=== PATIENT | male | born 1985 ===

== ENCOUNTER 2020-02-01 20:29 | Outpatient (CLI) | payer MEDICAID | END 2020-02-01 20:30 | disposition critical access hospital (66) | LOC: EMS 20:29 | PROVIDERS: ATTEND Surgery | DX: R41.82 Altered mental status, unspecified (principal); R45.5 Hostility | CPT/HCPCS: A0425; A0429; A0999 ==

== ENCOUNTER 2020-02-01 20:43 | Inpatient (IN) | payer MEDICAID ==
[2020-02-01] MEDS ORDERED: KETAMINE 500 MG/10 ML VIAL IM STA (20:47)
[2020-02-01] MEDS ORDERED: KETAMINE 500 MG/10 ML VIAL IVP STA (20:50)
[2020-02-01] MEDS ORDERED: KETAMINE 500 MG/10 ML VIAL ONE (20:53)
[2020-02-01] MEDS ORDERED: SUCCINYLCHOLINE 200 MG/10 ML VIAL ONE (21:03)
[2020-02-01] MEDS ORDERED: PROPOFOL 200 MG/20 ML VIAL IVP ONE (21:03)
[2020-02-01 21:06] LABS: BASOPHILS # (AUTO) 0.1 10^3/uL (0.0-0.1); BASOPHILS % (AUTO) 0.4 %; EOSINOPHILS # (AUTO) 0.2 10^3/uL (0.0-0.7); EOSINOPHILS % (AUTO) 1.4 %; HGB - HEMOGLOBIN 12.5 g/dL (14.0-18.0); LYMPHOCYTES # (AUTO) 3.9 10^3/uL (1.5-3.5); LYMPHOCYTES % (AUTO) 31.5 %; MEAN CORPUSCULAR HGB CONC 33.8 g/dL (32.0-36.0); MEAN CORPUSCULAR VOLUME 88.7 fL (80.0-94.0); MEAN PLATELET VOLUME 9.7 fL (7.4-11.4); MONOCYTES # (AUTO) 1.5 10^3/uL (0.0-1.0); MONOCYTES % (AUTO) 11.6 %; NEUTROPHILS # (AUTO) 6.9 10^3/uL (1.5-6.6); NEUTROPHILS % (AUTO) 54.7 %; PLT - PLATELET COUNT 237 10^3/uL (130-450); RED BLOOD COUNT 4.17 10^6/uL (4.70-6.10); RED CELL DISTRIBUTION WIDTH 12.8 % (12.0-15.0); WHITE BLOOD COUNT 12.5 x10^3/uL (4.8-10.8)
[2020-02-01] MEDS ORDERED: PROPOFOL 200 MG/20 ML VIAL IVP STA (21:09)
[2020-02-01] MEDS ORDERED: SUCCINYLCHOLINE 200 MG/10 ML VIAL IVP STA (21:09)
[2020-02-01] MEDS: PROPOFOL 500 MG/50 ML 500 MG/50 ML VIAL IV STA ×2 (21:10→22:44)
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
[2020-02-01 21:22] LABS: ACETAMINOPHEN < 10 ug/mL (10-30); ALBUMIN 4.2 g/dL (3.2-5.5); ALBUMIN/GLOBULIN RATIO 1.6 (1.0-2.2); ALKALINE PHOSPHATASE 57 IU/L (42-121); ALT ALANINE AMINOTRANSFERASE 34 IU/L (10-60); AST ASPARTATE AMINOTRANSFERASE 31 IU/L (10-42); BILIRUBIN,TOTAL 0.4 mg/dL (0.2-1.0); BUN - BLOOD UREA NITROGEN 19 mg/dL (6-20); CALCIUM 8.7 mg/dL (8.5-10.3); CARBON DIOXIDE - CO2 21 mmol/L (21-32); CHLORIDE 110 mmol/L (101-111); CREATININE 0.7 mg/dL (0.6-1.2); GLUCOSE 133 mg/dL (70-100); LIPASE 46 U/L (22-51); SALICYLATE < 6.0 mg/dL; SODIUM 145 mmol/L (135-145); TOTAL PROTEIN 6.8 g/dL (6.7-8.2)
[2020-02-01] MEDS ORDERED: THIAMINE INJ 100 MG in SODIUM CHLORIDE 0.9% 50 ML IV STA (21:45)
[2020-02-01] MEDS ORDERED: POTASSIUM CHLOR 10 MEQ/100 ML 10 MEQ/100 ML BAG IV ONE (21:45)
[2020-02-01] MEDS ORDERED: ONDANSETRON 4 MG/2 ML VIAL IVP PRN (21:48)
[2020-02-01] MEDS ORDERED: DEXTROSE 5%-0.45% NACL 1,000 ML IV STA (21:54)
--- NOTE | 2020-02-01 21:55 | CT Report ---
PROCEDURE: HEAD WO INDICATIONS: Acute altered mental status. TECHNIQUE: Noncontrast 4.5 mm thick angled axial sections acquired from the foramen magnum to the vertex. For r adiation dose reduction, the following was used: automated exposure control, adjustment of mA and/or kV according to patient size. COMPARISON: None. FINDINGS: Image quality: Excellent. CSF spaces: Basal cisterns are patent. No extra-axial fluid collections. Ventricles are normal in size and shape. Brain: No midline shift. No intracranial masses or hemorrhage. Rutledge-white matter interface is norm al. Skull and face: Calvarium and visualized facial bones are intact, without suspicious lesions. Sinuses: Visualized sinuses and mastoids are clear. IMPRESSION: No acute intracranial disease process. Reviewed by: Brenda Chirinos MD, PhD on 02/01/2020 9:54 PM PDT Approved by: Brenda Chirinos MD, PhD on 02/01/2020 9:54 PM PDT Station ID: [id number]
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
--- NOTE | 2020-02-01 21:57 | XRAY Report ---
PROCEDURE: Chest for Line Placement INDICATIONS: INTUBATION TECHNIQUE: One view of the chest was acquired. COMPARISON: None FINDINGS: Surgical changes and devices: ET tube projects 4.9 cm superior to the ronni. NG tube projects across the GE junction with side port in the proximal stomach. Lungs and pleura: No pleural effusions or pneumothorax. Lungs are clear. Mediastinum: Mediastinal contours appear normal. Heart size is normal. Bones and chest wall: No suspicious bony lesions. Overlying soft tissues appear unremarkable. IMPRESSION: 1. ET tube 4.9 cm superior to the ronni. 2. No acute cardiopulmonary disease process. Reviewed by: Brenda Chirinos MD, PhD on 02/01/2020 9:56 PM PDT Approved by: Brenda Chirinos MD, PhD on 02/01/2020 9:56 PM PDT Station ID: [id number]
[2020-02-01 21:58] LABS: MUDS CUTOFF CONCENTRATIONS CUTOFF CONC BELOW:
[2020-02-01 22:00] LABS: BILIRUBIN,URINE NEGATIVE (NEGATIVE); GLUCOSE, URINE (UA) NEGATIVE (NEGATIVE); KETONES,URINE (UA) NEGATIVE (NEGATIVE); LEUKOCYTE ESTERASE, URINE NEGATIVE (NEGATIVE); NITRITE,URINE NEGATIVE (NEGATIVE); OCCULT BLOOD,URINE NEGATIVE (NEGATIVE); PROTEIN,URINE NEGATIVE (NEGATIVE); UROBILINOGEN,URINE 0.2 (NORMAL) E.U./dL (NORMAL)
[2020-02-01] MEDS ORDERED: LACTATED RINGERS 1,000 ML IV SCH (22:00)
[2020-02-01] MEDS ORDERED: PROPOFOL 500 MG/50 ML 500 MG/50 ML VIAL IV SCH (22:00)
[2020-02-01 22:01] LABS: CLARITY,URINE CLEAR (CLEAR)
[2020-02-01 22:11] LABS: AMPHETAMINE SCREEN,URINE POSITIVE (NEGATIVE); BENZODIAZEPINES SCREEN, URINE NEGATIVE (NEGATIVE); COCAINE SCREEN URINE NEGATIVE (NEGATIVE); METHADONE SCREEN, URINE NEGATIVE (NEGATIVE); METHAMPHETAMINES SCREEN, URINE NEGATIVE (NEGATIVE); OPIATE SCREEN, URINE NEGATIVE (NEGATIVE); OXYCODONE SCREEN, URINE NEGATIVE (NEGATIVE); PROPOXYPHENE SCREEN, URINE NEGATIVE (NEGATIVE); TRICYCLIC ANTIDEPRESSANT,URINE NEGATIVE (NEGATIVE)
[2020-02-01 22:58] LABS: ABG BASE EXCESS -7.5 mmol/L (-2.0-3.0); ABG HCO3 18.8 mmol/L (22.0-26.0); ABG OXYGEN SATURATION 99 % (94-98); ABG PCO2 41 mmHg (34-45); ABG PH 7.28 (7.35-7.45); ALLEN TEST POSITIVE
[2020-02-01 23:00] LABS: ABG PO2 252 mmHg (80-100)
[2020-02-01] MEDS: POTASSIUM CHLOR 10 MEQ/100 ML 10 MEQ/100 ML BAG IV SCH (23:48)
[2020-02-01] MEDS: SODIUM CHLORIDE FLUSH 0.9% 10 ML SYRINGE IVP SCH (23:49)
[2020-02-02] MEDS: MIDAZOLAM 2 MG/2 ML VIAL IVP PRN ×4 (00:38→07:58)
[2020-02-02] MEDS: POTASSIUM CHLOR 10 MEQ/100 ML 10 MEQ/100 ML BAG IV SCH ×6 (00:50→10:10)
[2020-02-02] MEDS: PROPOFOL 500 MG/50 ML 500 MG/50 ML VIAL IV SCH ×9 (01:05→18:30)
[2020-02-02] MEDS: SODIUM CHLORIDE FLUSH 0.9% 10 ML SYRINGE IVP PRN ×2 (03:39→20:57)
[2020-02-02 04:48] LABS: ABG HCO3 26.1 mmol/L (22.0-26.0); ABG PCO2 42 mmHg (34-45); ABG PO2 138 mmHg (80-100)
[2020-02-02 04:49] LABS: ABG OXYGEN SATURATION 99 % (94-98); ALLEN TEST POSITIVE
[2020-02-02 05:54] LABS: BASOPHILS % (AUTO) 0.3 %; EOSINOPHILS # (AUTO) 0.1 10^3/uL (0.0-0.7); EOSINOPHILS % (AUTO) 0.9 %; HGB - HEMOGLOBIN 11.3 g/dL (14.0-18.0); LYMPHOCYTES # (AUTO) 2.4 10^3/uL (1.5-3.5); MEAN CORPUSCULAR HEMOGLOBIN 29.3 pg (27.0-31.0); MEAN CORPUSCULAR HGB CONC 32.8 g/dL (32.0-36.0); MEAN CORPUSCULAR VOLUME 89.1 fL (80.0-94.0); MONOCYTES # (AUTO) 0.6 10^3/uL (0.0-1.0); NEUTROPHILS # (AUTO) 3.9 10^3/uL (1.5-6.6); NEUTROPHILS % (AUTO) 55.4 %; PLT - PLATELET COUNT 192 10^3/uL (130-450); RED BLOOD COUNT 3.86 10^6/uL (4.70-6.10); RED CELL DISTRIBUTION WIDTH 13.1 % (12.0-15.0)
[2020-02-02 06:10] LABS: CREATININE 0.6 mg/dL (0.6-1.2); MAGNESIUM 2.3 mg/dL (1.7-2.8)
[2020-02-02 08:33] LABS: VBG PH 7.37 (7.31-7.41)
[2020-02-02] MEDS ORDERED: MULTIVITAMIN 10 ML, THIAMINE INJ 100 MG, FOLIC ACID INJ 1 MG in D5.45NS W/20 MEQ KCL 1,... IV SCH (09:00)
[2020-02-02] MEDS ORDERED: MULTIVITAMIN 10 ML, THIAMINE INJ 100 MG, FOLIC ACID INJ 1 MG, POTASSIUM CHLORIDE INJ 20... IV SCH ×5 (09:00)
[2020-02-02] MEDS: SODIUM CHLORIDE FLUSH 0.9% 10 ML SYRINGE IVP SCH ×3 (09:11→20:45)
[2020-02-02] MEDS: ENOXAPARIN 40 MG/0.4 ML SYRINGE SUBQ SCH (09:12)
--- NOTE | 2020-02-02 09:26 | PHARMACY PROGRESS NOTE ---
- Best Possible Medication History Admit Date and Time: 02/01/20 2148 Processed by: Nursing Medication History completed: In progress Patient Interview: Pt unable to participate As the person ultimately responsible for medication therapy, providers are able to order a medication from an existing home medication list in [facility] via the "Reconcile Routine" prior to Confirmation of that medication by child support officer. Such practice is discouraged except when the physician, in their clinical judgment, deems that a medical need exists for a medication without regard to previous use.
--- NOTE | 2020-02-02 11:56 | PROVIDER PROGRESS NOTE ---
Assessment/Plan - Problem List (1) Respiratory failure requiring intubation Assessment/Plan: He was intubated in the emergency department after he was sedated due to his violent behavior. Intubation was for airway protection alone. He was sedated with Propofil drip and iv Versed pushes. He was extubated this morning. (2) Violent behavior Assessment/Plan: He was brought in by police for violent behavior in the [facility] parking lot. Unclear if this was secondary to the alcohol intoxication or a combination of alcohol plus illicit drug use as well. CT of the head was unremarkable. TSH is within normal limits. No ammonia level was done, but LFTs were normal. Serum had an alcohol level of >200. Urine toxicology showed (+) Amphetamine, (-) Metamphetamine and (+) Cannibis.. He does not remember what happened yesterday, when asked if he remembers the police, etc. after extubation today. He will need a mental health evaluation once he is medically cleared. Will slowly wean down the Propofol drip. (3) Alcohol use Assessment/Plan: Unknown if this was a single episode of alcohol intake versus binging versus chronic alcohol abuse. His serum alcohol level was greater than 200 at admission. Will order daily Thiamine po and advance diet. We will order CIWA protocol with Ativan as needed, watching for alcohol withdrawal symptoms, which is likely later today and tomorrow. (4) Amphetamine user Assessment/Plan: Unknown if this was a single episode of amphetamine intake versus binging versus chronic amphetamine abuse. The tachycardia is improving. Watch for amphetamine withdrawal, which would be hypersomnolence. (5) Hypokalemia Assessment/Plan: Replace with ICU protocol. Follow BMP daily. - Current Meds Current Meds: Current Medications Generic Name Dose Route Start Last Admin Trade Name Freq PRN Reason Stop Dose Admin Enoxaparin Sodium 40 mg 02/02/20 09:00 02/02/20 09:12 Lovenox SUBQ 40 mg DAILY NILO Administration Propofol 500 mg in 50 mls @ 4.082 mls/hr 02/01/20 23:52 02/02/20 11:05 Diprivan IV 50 mcg/kg/min .[id number] NILO 20.412 mls/hr Titration Protocol 10 MCG/KG/MIN Multivitamins 10 ml/ Thiamine 1,021.2 mls @ 100 mls/hr 02/02/20 09:00 02/02/20 11:00 HCl 100 mg/ Folic Acid 1 mg/ IV 100 mls/hr Potassium Chloride 20 meq/ DAILY NILO Infusion Dextrose/Sodium Chloride Midazolam HCl 4 mg 02/01/20 21:52 02/02/20 07:58 Versed IVP 4 mg Q2HR PRN Administration Agitation Sodium Chloride 10 ml 02/02/20 01:00 02/02/20 09:11 Normal Saline Flush 0.9% IVP 10 ml 0100,0900,1700 NILO Administration Sodium Chloride 10 ml 02/01/20 21:48 02/02/20 03:39 Normal Saline Flush 0.9% IVP 10 ml PRN PRN Administration NEEDED PER PROVIDER ORDERS - Lab Result Fish Bone Diagrams: 02/02/20 13:16 02/02/20 13:16 - Additional Planning My Orders: My Active Orders 02/02/20 11:15 Extubation [Extubate] [RC] ONCE Clear Liquid Diet [DIET] 02/02/20 11:25 O2 [Oxygen Therapy] [RC] .PRN 02/02/20 11:36 NG Discontinuation [RC] ONCE 02/02/20 Dinner DIET [Regular Diet] [DIET] Subjective - Subjective Patient Reports: Other (Currently asleep, sedated on iv Propofol) Nursing Reports: Other (After extubation, he was confused, oriented only to self, trying to pull out his IV, he needed propofol to be continued) Objective Vital Signs: Vital Signs - 24 hr 02/01/20 02/01/20 02/01/20 20:35 21:00 21:22 Temperature 37.1 C Heart Rate 135 H 121 H Heart Rate [ Monitoring electrodes] Respiratory 12 19 Rate Blood Pressure 158/92 H 146/95 H Blood Pressure [Right Brachial artery] O2 Saturation 68 L 100 02/01/20 02/01/20 02/01/20 21:32 21:38 21:44 Temperature Heart Rate 115 H 117 H 116 H Heart Rate [ Monitoring electrodes] Respiratory 18 19 Rate Blood Pressure 121/82 H 123/84 H 115/68 Blood Pressure [Right Brachial artery] O2 Saturation 100 95 93 02/01/20 02/01/20 02/01/20 22:04 22:26 22:30 Temperature Heart Rate 101 H Heart Rate [ 100 108 H Monitoring electrodes] Respiratory 14 Rate Blood Pressure 107/62 Blood Pressure 124/92 H 121/87 H [Right Brachial artery] O2 Saturation 100 100 02/01/20 02/01/20 02/01/20 23:00 23:26 23:32 Temperature Heart Rate 95 96 Heart Rate [ 101 H Monitoring electrodes] Respiratory 18 Rate Blood Pressure Blood Pressure 109/72 [Right Brachial artery] O2 Saturation 100 02/02/20 02/02/20 02/02/20 00:04 01:04 01:11 Temperature 37.3 C Heart Rate 103 H Heart Rate [ 94 95 Monitoring electrodes] Respiratory 18 20 Rate Blood Pressure Blood Pressure 127/100 H 111/82 H [Right Brachial artery] O2 Saturation 100 100 02/02/20 02/02/20 02/02/20 02:00 03:00 03:44 Temperature Heart Rate 98 Heart Rate [ 96 99 Monitoring electrodes] Respiratory 21 10 L Rate Blood Pressure Blood Pressure 116/88 H 112/81 H [Right Brachial artery] O2 Saturation 100 99 02/02/20 02/02/20 02/02/20 04:00 05:00 06:00 Temperature Heart Rate Heart Rate [ 106 H 107 H 104 H Monitoring electrodes] Respiratory 18 18 18 Rate Blood Pressure Blood Pressure 100/58 L 114/65 112/70 [Right Brachial artery] O2 Saturation 99 98 98 02/02/20 02/02/20 02/02/20 06:02 07:00 07:15 Temperature Heart Rate 105 H 108 H Heart Rate [ 102 H Monitoring electrodes] Respiratory 18 Rate Blood Pressure Blood Pressure 115/81 H [Right Brachial artery] O2 Saturation 98 02/02/20 02/02/20 02/02/20 08:00 09:00 09:13 Temperature 38.0 C H Heart Rate 112 H Heart Rate [ 109 H 113 H Monitoring electrodes] Respiratory 21 18 Rate Blood Pressure Blood Pressure 113/93 H 128/96 H [Right Brachial artery] O2 Saturation 98 98 02/02/20 02/02/20 02/02/20 10:00 10:26 11:00 Temperature 36.6 C Heart Rate 110 H Heart Rate [ 106 H 98 Monitoring electrodes] Respiratory 16 15 Rate Blood Pressure Blood Pressure 125/91 H 141/96 H [Right Brachial artery] O2 Saturation 98 100 20 11:21 Temperature Heart Rate 110 H Heart Rate [ Monitoring electrodes] Respiratory Rate Blood Pressure Blood Pressure [Right Brachial artery] O2 Saturation Oxygen O2 Source FM with humidity I&O (Last 24 Hrs): Intake and Output Totals x24h 01/31/20 02/01/20 02/02/20 23:59 23:59 23:59 Intake Total 36.299 1732.770 Output Total 500 1450 Balance -463.701 282.770 General: Other (Asleep, sedated) HEENT: Atraumatic, Mucous membr. moist/pink Neck: No JVD Neuro: Other (sedated) Cardiovascular: Regular rate Respiratory: No respiratory distress Abdomen: Soft Extremities: No edema - Results Results: Laboratory Results WBC 7.0 x10^3/uL (4.8-10.8) 02/02/20 04:50 RBC 3.86 10^6/uL (4.70-6.10) L 02/02/20 04:50 Hgb 11.3 g/dL (14.0-18.0) L 02/02/20 04:50 Hct 34.4 % (42.0-52.0) L 02/02/20 04:50 MCV 89.1 fL (80.0-94.0) 02/02/20 04:50 MCH 29.3 pg (27.0-31.0) 02/02/20 04:50 MCHC 32.8 g/dL (32.0-36.0) 02/02/20 04:50 RDW 13.1 % (12.0-15.0) 02/02/20 04:50 Plt Count 192 10^3/uL (130-450) 02/02/20 04:50 MPV 10.0 fL (7.4-11.4) 02/02/20 04:50 Neut # (Auto) 3.9 10^3/uL (1.5-6.6) 02/02/20 04:50 Lymph # (Auto) 2.4 10^3/uL (1.5-3.5) 02/02/20 04:50 [place] # (Auto) 0.6 10^3/uL (0.0-1.0) 02/02/20 04:50 Eos # (Auto) 0.1 10^3/uL (0.0-0.7) 02/02/20 04:50 Baso # (Auto) 0.0 10^3/uL (0.0-0.1) 02/02/20 04:50 Absolute Nucleated RBC 0.00 x10^3/uL 02/02/20 04:50 Nucleated RBC % 0.0 /100WBC 02/02/20 04:50 Bld Gas Analysis Time 0440 02/02/20 04:30 Sample Site LEFT RADIAL 02/02/20 04:30 ABG pH 7.40 (7.35-7.45) 02/02/20 04:30 ABG pCO2 42 mmHg (34-45) 02/02/20 04:30 ABG pO2 138 mmHg (80-100) H 02/02/20 04:30 ABG HCO3 26.1 mmol/L (22.0-26.0) H 02/02/20 04:30 ABG Total CO2 27.0 MMOL/L (21.0-29.0) 02/02/20 04:30 ABG O2 Saturation 99 % (94-98) H 02/02/20 04:30 ABG Base Excess 1.0 mmol/L (-2.0-3.0) 02/02/20 04:30 Shivam Test POSITIVE 02/02/20 04:30 VBG pH 7.370 (7.31-7.41) 02/02/20 07:29 Ionized Calcium 1.11 mmol/L (1.15-1.33) L 02/02/20 07:29 Respiration Rate 18 b/min 02/02/20 04:30 O2 Delivery Device VENTILATOR 02/02/20 04:30 Vent Mode SIMV 02/02/20 04:30 FiO2 32.00 02/02/20 04:30 Tidal Volume 450 mL 02/02/20 04:30 PEEP 5 cmH2O 02/02/20 04:30 Sodium 143 mmol/L (135-145) 02/02/20 04:50 Potassium 3.1 mmol/L (3.5-5.0) L 02/02/20 04:50 Chloride 112 mmol/L (101-111) H 02/02/20 04:50 Carbon Dioxide 23 mmol/L (21-32) 02/02/20 04:50 Anion Gap 8.0 (6-13) 02/02/20 04:50 BUN 13 mg/dL (6-20) 02/02/20 04:50 Creatinine 0.6 mg/dL (0.6-1.2) 02/02/20 04:50 Estimated GFR (MDRD) 153 (>89) 02/02/20 04:50 Glucose 133 mg/dL (70-100) H 02/02/20 04:50 POC Whole Bld Glucose 104 mg/dL (70 - 100) H 02/02/20 05:54 Calcium 8.0 mg/dL (8.5-10.3) L 02/02/20 04:50 Phosphorus 3.0 mg/dL (2.5-4.6) 02/02/20 04:50 Magnesium 2.3 mg/dL (1.7-2.8) 02/02/20 04:50 Total Bilirubin 0.4 mg/dL (0.2-1.0) 02/01/20 20:59 AST 31 IU/L (10-42) 02/01/20 20:59 ALT 34 IU/L (10-60) 02/01/20 20:59 Alkaline Phosphatase 57 IU/L (42-121) 02/01/20 20:59 Total Creatine Kinase < 22 IU/L (22-269) L 02/01/20 20:59 CK-MB (CK-2) 8.8 ng/mL (0.6-6.3) H 02/01/20 20:59 Total Protein 6.8 g/dL (6.7-8.2) 02/01/20 20:59 Albumin 3.4 g/dL (3.2-5.5) 02/02/20 04:50 Globulin 2.6 g/dL (2.1-4.2) 02/01/20 20:59 Albumin/Globulin Ratio 1.6 (1.0-2.2) 02/01/20 20:59 Lipase 46 U/L (22-51) 02/01/20 20:59 TSH 1.11 uIU/mL (0.34-5.60) 02/01/20 20:59 Urine Color YELLOW 02/01/20 21:50 Urine Clarity CLEAR (CLEAR) 02/01/20 21:50 Urine pH 7.0 PH (5.0-7.5) 02/01/20 21:50 Ur Specific [place] 1.020 (1.002-1.030) 02/01/20 21:50 Urine Protein NEGATIVE mg/dL (NEGATIVE) 02/01/20 21:50 Urine Glucose (UA) NEGATIVE mg/dL (NEGATIVE) 02/01/20 21:50 Urine Ketones NEGATIVE mg/dL (NEGATIVE) 02/01/20 21:50 Urine Occult Blood NEGATIVE (NEGATIVE) 02/01/20 21:50 Urine Nitrite NEGATIVE (NEGATIVE) 02/01/20 21:50 Urine Bilirubin NEGATIVE (NEGATIVE) 02/01/20 21:50 Urine Urobilinogen 0.2 (NORMAL) E.U./dL (NORMAL) 02/01/20 21:50 Ur Leukocyte Esterase NEGATIVE (NEGATIVE) 02/01/20 21:50 Ur Microscopic Review NOT INDICATED 02/01/20 21:50 Urine Culture Comments NOT INDICATED 02/01/20 21:50 Nasal Screen MRSA (PCR) NEGATIVE (NEGATIVE) 02/01/20 22:50 Salicylates < 6.0 mg/dL 02/01/20 20:59 Urine Opiates Screen NEGATIVE (NEGATIVE) 02/01/20 21:50 Ur Oxycodone Screen NEGATIVE (NEGATIVE) 02/01/20 21:50 Urine Methadone Screen NEGATIVE (NEGATIVE) 02/01/20 21:50 Ur Propoxyphene Screen NEGATIVE (NEGATIVE) 02/01/20 21:50 Acetaminophen < 10 ug/mL (10-30) L 02/01/20 20:59 Ur Barbiturates Screen NEGATIVE (NEGATIVE) 02/01/20 21:50 Ur Tricyclics Screen NEGATIVE (NEGATIVE) 02/01/20 21:50 Ur Phencyclidine Scrn NEGATIVE (NEGATIVE) 02/01/20 21:50 Ur Amphetamine Screen POSITIVE (NEGATIVE) H 02/01/20 21:50 U Methamphetamines Scrn NEGATIVE (NEGATIVE) 02/01/20 21:50 U Benzodiazepines Scrn NEGATIVE (NEGATIVE) 02/01/20 21:50 Urine Cocaine Screen NEGATIVE (NEGATIVE) 02/01/20 21:50 U Cannabinoids Screen POSITIVE (NEGATIVE) H 02/01/20 21:50 Ethyl Alcohol 294.4 mg/dL 02/01/20 20:59
[2020-02-02] MEDS ORDERED: LORazepam 2 MG/ML VIAL IVP PRN (12:08)
[2020-02-02 13:43] LABS: ALBUMIN 3.6 g/dL (3.2-5.5); ALBUMIN/GLOBULIN RATIO 1.4 (1.0-2.2); BILIRUBIN,TOTAL 0.5 mg/dL (0.2-1.0); CALCIUM 8.4 mg/dL (8.5-10.3); CREATININE 0.6 mg/dL (0.6-1.2); TOTAL PROTEIN 6.1 g/dL (6.7-8.2)
[2020-02-02 13:46] LABS: BASOPHILS % (AUTO) 0.3 %; EOSINOPHILS # (AUTO) 0.1 10^3/uL (0.0-0.7); EOSINOPHILS % (AUTO) 0.6 %; LYMPHOCYTES # (AUTO) 2.2 10^3/uL (1.5-3.5); LYMPHOCYTES % (AUTO) 19.5 %; MEAN CORPUSCULAR HEMOGLOBIN 29.1 pg (27.0-31.0); MEAN CORPUSCULAR HGB CONC 32.8 g/dL (32.0-36.0); MEAN CORPUSCULAR VOLUME 88.6 fL (80.0-94.0); MEAN PLATELET VOLUME 9.8 fL (7.4-11.4); MONOCYTES # (AUTO) 1.1 10^3/uL (0.0-1.0); MONOCYTES % (AUTO) 9.4 %; NEUTROPHILS # (AUTO) 7.8 10^3/uL (1.5-6.6); NEUTROPHILS % (AUTO) 69.8 %; PLT - PLATELET COUNT 211 10^3/uL (130-450); RED BLOOD COUNT 4.13 10^6/uL (4.70-6.10); RED CELL DISTRIBUTION WIDTH 13.2 % (12.0-15.0); WHITE BLOOD COUNT 11.2 x10^3/uL (4.8-10.8)
[2020-02-02] MEDS: THIAMINE 100 MG TABLET PO SCH (18:15)
[2020-02-02] MEDS ORDERED: diphenhydrAMINE 25 MG CAPSULE PO PRN (20:18)
[2020-02-02] MEDS: ACETAMINOPHEN 325 MG TABLET PO PRN (20:45)
[2020-02-02] MEDS: DEXMEDETOMIDINE 400 MCG/100 ML 100 ML IV PRN (20:57)
[2020-02-03 04:49] LABS: BASOPHILS % (AUTO) 0.5 %; EOSINOPHILS # (AUTO) 0.1 10^3/uL (0.0-0.7); EOSINOPHILS % (AUTO) 1.7 %; HGB - HEMOGLOBIN 11.6 g/dL (14.0-18.0); LYMPHOCYTES # (AUTO) 2.5 10^3/uL (1.5-3.5); LYMPHOCYTES % (AUTO) 30.4 %; MEAN CORPUSCULAR HEMOGLOBIN 28.4 pg (27.0-31.0); MEAN CORPUSCULAR HGB CONC 30.9 g/dL (32.0-36.0); MEAN CORPUSCULAR VOLUME 92.2 fL (80.0-94.0); MEAN PLATELET VOLUME 10.2 fL (7.4-11.4); MONOCYTES # (AUTO) 0.7 10^3/uL (0.0-1.0); NEUTROPHILS # (AUTO) 4.7 10^3/uL (1.5-6.6); NEUTROPHILS % (AUTO) 58.2 %; PLT - PLATELET COUNT 186 10^3/uL (130-450); RED BLOOD COUNT 4.08 10^6/uL (4.70-6.10); WHITE BLOOD COUNT 8.1 x10^3/uL (4.8-10.8)
[2020-02-03 05:02] LABS: CALCIUM 8.7 mg/dL (8.5-10.3); CREATININE 0.7 mg/dL (0.6-1.2); MAGNESIUM 2.4 mg/dL (1.7-2.8); PHOSPHORUS 4.4 mg/dL (2.5-4.6)
[2020-02-03] MEDS: DEXMEDETOMIDINE 400 MCG/100 ML 100 ML IV PRN (07:46)
[2020-02-03] MEDS: ACETAMINOPHEN 325 MG TABLET PO PRN ×3 (08:04→17:42)
[2020-02-03] MEDS: THIAMINE 100 MG TABLET PO SCH (08:10)
[2020-02-03] MEDS ORDERED: DEXMEDETOMIDINE 400 MCG in SODIUM CHLORIDE 0.9% 100ML 96 ML IV SCH (08:30)
[2020-02-03] MEDS: polyethylene glycoL 3350 17 GM PACKET PO SCH (08:34)
[2020-02-03] MEDS: SODIUM CHLORIDE FLUSH 0.9% 10 ML SYRINGE IVP SCH ×2 (08:34→17:44)
[2020-02-03] MEDS: ENOXAPARIN 40 MG/0.4 ML SYRINGE SUBQ SCH (10:17)
--- NOTE | 2020-02-03 12:00 | PROVIDER PROGRESS NOTE ---
Subjective - Prog Note Date Prog Note Date: 02/03/20 - Subjective Subjective: Complains of pain all over this morning. Reports feeling hungry and wants breakfast as soon as possible. He was started on Precedex yesterday overnight due to agitation. Reports no chest pain or dyspnea. He denies using any illicit drugs including methamphetamine, heroin, cocaine. He states he does drink alcohol on occasion but not on a daily basis. He does admit to drinking prior to his hospitalization. Current Medications - Current Medications Current Medications: Active Medications Acetaminophen (Tylenol) 650 mg PO Q6HR PRN PRN Reason: Pain or Fever > 38C (100.4F) Last Admin: 02/03/20 08:04 Dose: 650 mg Documented by: Al Hydroxide/Mg Hydroxide (Mylanta Plus) 30 ml PO Q4HR PRN PRN Reason: INDIGESTION Enoxaparin Sodium (Lovenox) 40 mg SUBQ DAILY [facility] Last Admin: 02/03/20 10:17 Dose: Not Given Documented by: Multivitamins (Theragran) 1 tab PO DAILYWM [facility] Ondansetron HCl (Zofran Inj) 4 mg IVP Q6HR PRN PRN Reason: Nausea / Vomiting Polyethylene Glycol (Miralax) 17 gm PO DAILY [facility] Last Admin: 02/03/20 08:34 Dose: 17 gm Documented by: Sodium Chloride (Normal Saline Flush 0.9%) 10 ml IVP 0100,0900,1700 [facility] Last Admin: 02/03/20 08:34 Dose: 10 ml Documented by: Sodium Chloride (Normal Saline Flush 0.9%) 10 ml IVP PRN PRN PRN Reason: NEEDED PER PROVIDER ORDERS Last Admin: 02/02/20 20:57 Dose: 10 ml Documented by: Thiamine HCl (Vitamin B-1) 100 mg PO DAILY [facility] Last Admin: 02/03/20 08:10 Dose: 100 mg Documented by: Home Medications Unobtainable [HOME MEDICATIONS UNOBTAINABLE] 02/01/20 Objective - Vital Signs/Intake & Output Reviewed Vital Signs: Yes Vital Signs: Vital Signs Temp Pulse Resp BP Pulse Ox 02/03/20 11:47 79 16 123/77 98 02/03/20 11:00 75 16 02/03/20 10:00 73 16 107/68 99 02/03/20 09:00 37.1 C 66 13 95/67 99 02/03/20 08:00 66 14 116/73 99 Intake & Output: Intake & Output 01/31/20 02/01/20 02/02/20 02/03/20 23:59 23:59 23:59 23:59 Intake Total 36.299 3494.302 1011.270 Output Total 500 3535 1140 Balance -463.701 -40.698 -128.730 - Objective General Appearance: positive: No acute distress, Alert Eyes Bilateral: positive: Normal inspection ENT: positive: ENT inspection nml Neck: positive: Nml inspection Respiratory: positive: No respiratory distress. negative: Wheezes, Rales Cardiovascular: positive: Regular rate & rhythm, No murmur. negative: Tachycardia, Bradycardia Abdomen: positive: Non-tender, No distention. negative: Tenderness, Guarding, Rebound Skin: positive: No rash, Warm, Dry Extremities: positive: Full ROM, No pedal edema Neurologic/Psychiatric: positive: Oriented x3, Motor nml. negative: Disoriented to person, Disoriented to place, Disoriented to time - Lab Results Fish Bones: 02/03/20 04:05 02/03/20 04:05 Other Labs: Lab Results x24hrs 02/03/20 02/03/20 02/02/20 Range/Units 04:05 04:05 17:57 WBC 8.1 (4.8-10.8) x10^3/uL RBC 4.08 L (4.70-6.10) 10^6/uL Hgb 11.6 L (14.0-18.0) g/dL Hct 37.6 L (42.0-52.0) % MCV 92.2 (80.0-94.0) fL MCH 28.4 (27.0-31.0) pg MCHC 30.9 L (32.0-36.0) g/dL RDW 13.0 (12.0-15.0) % Plt Count 186 (130-450) 10^3/uL MPV 10.2 (7.4-11.4) fL Neut # (Auto) 4.7 (1.5-6.6) 10^3/uL Lymph # (Auto) 2.5 (1.5-3.5) 10^3/uL [place] # (Auto) 0.7 (0.0-1.0) 10^3/uL Eos # (Auto) 0.1 (0.0-0.7) 10^3/uL Baso # (Auto) 0.0 (0.0-0.1) 10^3/uL Absolute Nucleated RBC 0.00 x10^3/uL Nucleated RBC % 0.0 /100WBC Sodium 141 (135-145) mmol/L Potassium 3.9 (3.5-5.0) mmol/L Chloride 107 (101-111) mmol/L Carbon Dioxide 26 (21-32) mmol/L Anion Gap 8.0 (6-13) BUN 13 (6-20) mg/dL Creatinine 0.7 (0.6-1.2) mg/dL Estimated GFR (MDRD) 128 (>89) Glucose 168 H (70-100) mg/dL POC Whole Bld Glucose 94 (70 - 100) mg/dL Calcium 8.7 (8.5-10.3) mg/dL Phosphorus 4.4 (2.5-4.6) mg/dL Magnesium 2.4 (1.7-2.8) mg/dL Total Bilirubin (0.2-1.0) mg/dL AST (10-42) IU/L ALT (10-60) IU/L Alkaline Phosphatase (42-121) IU/L Total Protein (6.7-8.2) g/dL Albumin (3.2-5.5) g/dL Globulin (2.1-4.2) g/dL Albumin/Globulin Ratio (1.0-2.2) 02/02/20 02/02/20 Range/Units 13:16 13:16 WBC 11.2 H (4.8-10.8) x10^3/uL RBC 4.13 L (4.70-6.10) 10^6/uL Hgb 12.0 L (14.0-18.0) g/dL Hct 36.6 L (42.0-52.0) % MCV 88.6 (80.0-94.0) fL MCH 29.1 (27.0-31.0) pg MCHC 32.8 (32.0-36.0) g/dL RDW 13.2 (12.0-15.0) % Plt Count 211 (130-450) 10^3/uL MPV 9.8 (7.4-11.4) fL Neut # (Auto) 7.8 H (1.5-6.6) 10^3/uL Lymph # (Auto) 2.2 (1.5-3.5) 10^3/uL [place] # (Auto) 1.1 H (0.0-1.0) 10^3/uL Eos # (Auto) 0.1 (0.0-0.7) 10^3/uL Baso # (Auto) 0.0 (0.0-0.1) 10^3/uL Absolute Nucleated RBC 0.00 x10^3/uL Nucleated RBC % 0.0 /100WBC Sodium 140 (135-145) mmol/L Potassium 3.6 (3.5-5.0) mmol/L Chloride 106 (101-111) mmol/L Carbon Dioxide 26 (21-32) mmol/L Anion Gap 8.0 (6-13) BUN 9 (6-20) mg/dL Creatinine 0.6 (0.6-1.2) mg/dL Estimated GFR (MDRD) 153 (>89) Glucose 103 H (70-100) mg/dL POC Whole Bld Glucose (70 - 100) mg/dL Calcium 8.4 L (8.5-10.3) mg/dL Phosphorus (2.5-4.6) mg/dL Magnesium (1.7-2.8) mg/dL Total Bilirubin 0.5 (0.2-1.0) mg/dL AST 22 (10-42) IU/L ALT 28 (10-60) IU/L Alkaline Phosphatase 42 (42-121) IU/L Total Protein 6.1 L (6.7-8.2) g/dL Albumin 3.6 (3.2-5.5) g/dL Globulin 2.5 (2.1-4.2) g/dL Albumin/Globulin Ratio 1.4 (1.0-2.2) - Diagnostic Imaging Diagnostic Imaging Results: positive: Final report reviewed Assessment/Plan - Problem List (1) Violent behavior Impression: Suspect this is secondary to the alcohol intoxication. Urine toxicology was positive for amphetamines but negative for methamphetamines. It was also positive for cannabis. He denies any illicit drug use. He does endorse the use of alcohol and reports drinking prior to the hospitalization. He did require Precedex overnight due to agitation but this has now been weaned off. He is now alert and oriented x3. He does use vulgar language at times and has been using inappropriate language with staff. He is now medically cleared. He will need a mental health evaluation social work has been consulted. He will be transferred to [facility]. (2) Alcohol intoxication Impression: This is likely the cause of his violent behavior. He reports this with a single episode of alcohol consumption and that he is not a daily drinker. His alcohol level was nearly 300 on admission. He has not been changing to oral thiamine and multivitamin. He has shown no evidence of alcohol withdrawal but we will monitor him while he is hospitalized. Qualifiers: Complication of substance-induced condition: with delirium Qualified Code(s): F10.921 - Alcohol use, unspecified with intoxication delirium (3) Amphetamine user Impression: His urine drug screen was positive for amphetamines but negative for methamphetamines. This may potentially be a false positive or could be due to multiple drugs that he may have used. Social work has been consulted for mental health evaluation. (4) Respiratory failure requiring intubation Impression: Resolved. He was intubated for airway protection. He is now extubated and saturating well on room air.
[2020-02-03] MEDS: MAG HYDROX/AL HYDROX/SIMETH 30 ML UDC PO PRN (13:37)
[2020-02-03] MEDS ORDERED: OLANZapine ODT 5 MG TABLET TL SCH (14:00)
[2020-02-03] MEDS: SODIUM CHLORIDE FLUSH 0.9% 10 ML SYRINGE IVP PRN (17:45)
[2020-02-03] MEDS: NICOTINE 21 MG PATCH TOP SCH (19:02)
[2020-02-03] MEDS: IBUPROFEN 400 MG TABLET PO PRN (21:12)
[2020-02-03] MEDS: traZODone 50 MG TABLET PO SCH (21:12)
[2020-02-04] MEDS: IBUPROFEN 400 MG TABLET PO PRN ×3 (04:37→14:45)
[2020-02-04] MEDS: SODIUM CHLORIDE FLUSH 0.9% 10 ML SYRINGE IVP SCH ×3 (04:38→17:05)
[2020-02-04 05:19] LABS: BASOPHILS # (AUTO) 0.1 10^3/uL (0.0-0.1); BASOPHILS % (AUTO) 0.6 %; EOSINOPHILS # (AUTO) 0.3 10^3/uL (0.0-0.7); EOSINOPHILS % (AUTO) 3.5 %; HGB - HEMOGLOBIN 12.8 g/dL (14.0-18.0); MEAN CORPUSCULAR HEMOGLOBIN 29.4 pg (27.0-31.0); MEAN CORPUSCULAR HGB CONC 32.7 g/dL (32.0-36.0); MEAN CORPUSCULAR VOLUME 89.7 fL (80.0-94.0); MONOCYTES # (AUTO) 0.9 10^3/uL (0.0-1.0); MONOCYTES % (AUTO) 10.2 %; NEUTROPHILS # (AUTO) 4.3 10^3/uL (1.5-6.6); NEUTROPHILS % (AUTO) 50.2 %; PLT - PLATELET COUNT 255 10^3/uL (130-450); RED BLOOD COUNT 4.36 10^6/uL (4.70-6.10); RED CELL DISTRIBUTION WIDTH 12.8 % (12.0-15.0); WHITE BLOOD COUNT 8.5 x10^3/uL (4.8-10.8)
[2020-02-04 05:32] LABS: CREATININE 0.9 mg/dL (0.6-1.2); MAGNESIUM 2.3 mg/dL (1.7-2.8)
[2020-02-04] MEDS: MULTIVITAMIN TABLET PO SCH (08:14)
[2020-02-04] MEDS: NICOTINE 21 MG PATCH TOP SCH (08:28)
[2020-02-04] MEDS: polyethylene glycoL 3350 17 GM PACKET PO SCH (08:48)
[2020-02-04] MEDS: ENOXAPARIN 40 MG/0.4 ML SYRINGE SUBQ SCH (08:48)
[2020-02-04] MEDS: THIAMINE 100 MG TABLET PO SCH (09:30)
[2020-02-04] MEDS: ACETAMINOPHEN 325 MG TABLET PO PRN ×3 (10:05→20:31)
[2020-02-04] MEDS: MAG HYDROX/AL HYDROX/SIMETH 30 ML UDC PO PRN (10:06)
[2020-02-04] MEDS: OLANZapine ODT 5 MG TABLET TL SCH (13:10)
[2020-02-04] MEDS ORDERED: LORazepam 2 MG/ML VIAL IVP SCH (14:15)
[2020-02-04] MEDS ORDERED: IBUPROFEN 400 MG TABLET PO SCH (15:00)
[2020-02-04] MEDS ORDERED: IBUPROFEN 800 MG TABLET PO SCH (15:05)
--- NOTE | 2020-02-04 16:01 | PROVIDER PROGRESS NOTE ---
"Subjective - Prog Note Date Prog Note Date: 02/04/20 - Subjective Subjective: He complains of pain all over and is requesting something stronger than ibuprofen or Tylenol. Reports no chest pain or dyspnea he thinks he has cellulitis and is requesting antibiotics. He reports he has had cellulitis in the past. He wants to leave the hospital and at times he request to speak with his director of women's services. He currently denies any auditory hallucinations but he states that he does have them at times and he supposed be on Zyprexa which he has not been taking. Current Medications - Current Medications Current Medications: Active Medications Acetaminophen (Tylenol) 650 mg PO Q6HR PRN PRN Reason: Pain or Fever > 38C (100.4F) Last Admin: 02/04/20 10:05 Dose: 650 mg Documented by: Al Hydroxide/Mg Hydroxide (Mylanta Plus) 30 ml PO Q4HR PRN PRN Reason: INDIGESTION Last Admin: 02/04/20 10:06 Dose: 30 ml Documented by: Enoxaparin Sodium (Lovenox) 40 mg SUBQ DAILY [facility] Last Admin: 02/04/20 08:48 Dose: Not Given Documented by: Ibuprofen (Motrin) 800 mg PO ONCE NILO Stop: 02/04/20 16:00 Last Admin: 02/04/20 15:25 Dose: Not Given Documented by: Multivitamins (Theragran) 1 tab PO DAILYWM [facility] Last Admin: 02/04/20 08:14 Dose: 1 tab Documented by: Nicotine (Nicoderm) 1 patch TOP DAILY [facility] Last Admin: 02/04/20 08:28 Dose: 1 patch Documented by: Olanzapine (Zyprexa Odt) 5 mg TL DAILY [facility] Last Admin: 02/04/20 13:10 Dose: 5 mg Documented by: Ondansetron HCl (Zofran Inj) 4 mg IVP Q6HR PRN PRN Reason: Nausea / Vomiting Polyethylene Glycol (Miralax) 17 gm PO DAILY [facility] Last Admin: 02/04/20 08:48 Dose: Not Given Documented by: Sodium Chloride (Normal Saline Flush 0.9%) 10 ml IVP 0100,0900,1700 [facility] Last Admin: 02/04/20 08:49 Dose: 10 ml Documented by: Sodium Chloride (Normal Saline Flush 0.9%) 10 ml IVP PRN PRN PRN Reason: NEEDED PER PROVIDER ORDERS Last Admin: 02/03/20 17:45 Dose: 20 ml Documented by: Thiamine HCl (Vitamin B-1) 100 mg PO DAILY [facility] Last Admin: 02/04/20 09:30 Dose: 100 mg Documented by: Trazodone HCl (Desyrel) 50 mg PO QPM [facility] Last Admin: 02/03/20 21:12 Dose: 50 mg Documented by: OLANZapine [Zyprexa] 5 mg PO 02/03/20 Objective - Vital Signs/Intake & Output Reviewed Vital Signs: Yes Vital Signs: Vital Signs x48h Temp Pulse Resp BP Pulse Ox 02/04/20 15:42 36.5 C 106 H 20 122/73 97 02/04/20 12:39 97.8 C H 105 H 12 153/88 H 98 02/04/20 08:34 36.4 C L 102 H 12 153/91 H 98 Intake & Output: Intake & Output 02/01/20 02/02/20 02/03/20 02/04/20 23:59 23:59 23:59 23:59 Intake Total 36.299 3494.302 3571.270 2280 Output Total 500 3535 1840 800 Balance -463.701 -40.698 4206.006 9749 - Objective General Appearance: positive: No acute distress, Alert Eyes Bilateral: positive: Normal inspection ENT: positive: ENT inspection nml Neck: positive: Nml inspection Respiratory: positive: No respiratory distress. negative: Wheezes, Rales, Rhonchi Cardiovascular: positive: No murmur, Tachycardia. negative: Extrasystoles, Bradycardia, Systolic murmur, Diastolic murmur Abdomen: positive: Non-tender, No distention. negative: Tenderness, Guarding, Rebound Skin: positive: Color nml, No rash, Warm, Dry Extremities: positive: Full ROM, No pedal edema Neurologic/Psychiatric: positive: Oriented x3, Motor nml, Other (Pressured speech and tangential thoughts.). negative: Disoriented to person, Disoriented to place, Disoriented to time - Lab Results Fish Bones: 02/04/20 04:20 02/04/20 04:20 Other Labs: Lab Results x24hrs 02/04/20 02/04/20 Range/Units 04:20 04:20 WBC 8.5 (4.8-10.8) x10^3/uL RBC 4.36 L (4.70-6.10) 10^6/uL Hgb 12.8 L (14.0-18.0) g/dL Hct 39.1 L (42.0-52.0) % MCV 89.7 (80.0-94.0) fL MCH 29.4 (27.0-31.0) pg MCHC 32.7 (32.0-36.0) g/dL RDW 12.8 (12.0-15.0) % Plt Count 255 (130-450) 10^3/uL MPV 10.0 (7.4-11.4) fL Neut # (Auto) 4.3 (1.5-6.6) 10^3/uL Lymph # (Auto) 3.0 (1.5-3.5) 10^3/uL [place] # (Auto) 0.9 (0.0-1.0) 10^3/uL Eos # (Auto) 0.3 (0.0-0.7) 10^3/uL Baso # (Auto) 0.1 (0.0-0.1) 10^3/uL Absolute Nucleated RBC 0.00 x10^3/uL Nucleated RBC % 0.0 /100WBC Sodium 140 (135-145) mmol/L Potassium 4.2 (3.5-5.0) mmol/L Chloride 103 (101-111) mmol/L Carbon Dioxide 29 (21-32) mmol/L Anion Gap 8.0 (6-13) BUN 24 H (6-20) mg/dL Creatinine 0.9 (0.6-1.2) mg/dL Estimated GFR (MDRD) 96 (>89) Glucose 125 H (70-100) mg/dL Calcium 9.0 (8.5-10.3) mg/dL Phosphorus 5.0 H (2.5-4.6) mg/dL Magnesium 2.3 (1.7-2.8) mg/dL ABX Reporting Has patient been on IV antibiotics over the past 48 hours?: No Assessment/Plan - Problem List (1) Acute psychosis Impression: |His current presentation is consistent with acute psychosis given his history of paranoid schizophrenia. 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 He has paranoid thoughts at this time. He was evaluated by [facility] and he is on involuntary hold. Pending placement to [facility] once we have a negative COVID test. We will continue Zyprexa 5 mg which was resumed today. (2) Paranoid schizophrenia Impression: Likely cause of his acute psychosis. We have resumed his Zyprexa at 5 mg daily. Pending placement to [facility] once negative COVID test. (3) Amphetamine user Impression: Drinking is positive for amphetamines but negative for methamphetamine. Also positive for marijuana. He denies any drug use. Has not shown signs of withdrawal during his hospitalization. (4) Alcohol use Impression: He has not shown signs of alcohol withdrawal during his hospitalization. Alcohol level was about 300 on admission. We will continue multivitamin and thiamine."
--- NOTE | 2020-02-04 19:13 | PROVIDER PROGRESS NOTE ---
Hospitalist Cross-cover Note - Cross-Cover Note Cross-Cover Note: Notified by nursing this late afternoon that the patient had eloped. The patient is on an involuntary hold due to acute psychosis secondary to his paranoid schizophrenia. The patient had declined any sedative earlier to take the edge off. As soon as the patient eloped, the police were contacted. We are awaiting for more information regarding the patient at this time. After speaking with the greenhouse assistant, the plan is to have the patient come back to the floor directly. Once he is here, a provider will reevaluate him again and perform a physical exam. This has been signed out to the vehicle assembler.
--- NOTE | 2020-02-04 20:49 | PROVIDER PROGRESS NOTE ---
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 This were removed upon arrival. He was in street clothes. When asked where he went, he simply stated he went to [place] and offered no further explanation. He had removed the IV accesses in his upper extremity. He was very disgruntled and verbally insulting to staff. Initially he was not willing to cooperate. However with some prompting complied with instructions given. Intermittently his statements seem nonsensical. He was also asking for pain medications and antibiotics because he claims he had been poison. On physical exam he was not in any distress. His lungs were clear to auscultation. Breath sounds are appreciable in all quadrants. Heart rate and rhythm were regular. He was initially placed on two-point self-restraints. This was taken within an hour because the patient became cooperative. The crisis line was contacted and a repeat blood alcohol level and urine drug screen was requested. These have been ordered.
[2020-02-04 21:16] LABS: MUDS CUTOFF CONCENTRATIONS CUTOFF CONC BELOW:
[2020-02-04] MEDS: traZODone 50 MG TABLET PO SCH (21:26)
[2020-02-04 21:29] LABS: AMPHETAMINE SCREEN,URINE NEGATIVE (NEGATIVE); BENZODIAZEPINES SCREEN, URINE NEGATIVE (NEGATIVE); COCAINE SCREEN URINE NEGATIVE (NEGATIVE); METHADONE SCREEN, URINE NEGATIVE (NEGATIVE); METHAMPHETAMINES SCREEN, URINE NEGATIVE (NEGATIVE); OPIATE SCREEN, URINE NEGATIVE (NEGATIVE); OXYCODONE SCREEN, URINE NEGATIVE (NEGATIVE); PROPOXYPHENE SCREEN, URINE NEGATIVE (NEGATIVE); TRICYCLIC ANTIDEPRESSANT,URINE NEGATIVE (NEGATIVE)
[2020-02-04] MEDS ORDERED: IBUPROFEN 400 MG TABLET PO ONE (22:00)
[2020-02-05] MEDS ORDERED: ACETAMINOPHEN 325 MG TABLET PO PRN (00:20)
[2020-02-05] MEDS: ACETAMINOPHEN 325 MG TABLET PO PRN (00:22)
[2020-02-05] MEDS: SODIUM CHLORIDE FLUSH 0.9% 10 ML SYRINGE IVP SCH ×2 (01:56→09:00)
[2020-02-05] MEDS: MULTIVITAMIN TABLET PO SCH (08:07)
[2020-02-05] MEDS: NICOTINE 21 MG PATCH TOP SCH (08:07)
[2020-02-05] MEDS: polyethylene glycoL 3350 17 GM PACKET PO SCH (08:09)
[2020-02-05] MEDS: ENOXAPARIN 40 MG/0.4 ML SYRINGE SUBQ SCH (08:09)
[2020-02-05] MEDS: OLANZapine ODT 5 MG TABLET TL SCH (08:13)
[2020-02-05 08:53] VITALS: BP 126/87
[2020-02-05] MEDS: THIAMINE 100 MG TABLET PO SCH (09:00)
[2020-02-05] MEDS ORDERED: LORazepam 1 MG TABLET PO PRN (10:15)
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
== END 2020-02-05 13:50 | DRG 885 ==
LOC: ED 20:43 → ICU 21:48
PROVIDERS: ADMIT Internal Medicine; ATTEND Internal Medicine
PROC: 5A1935Z Respiratory Ventilation, Less than 24 Consecutive Hours (ICD-10-PCS; principal; 2020-02-01)
DX: F20.0 Paranoid schizophrenia (principal); J96.90 Respiratory failure, unspecified, unspecified whether with hypoxia or hypercapnia; F10.921 Alcohol use, unspecified with intoxication delirium; Y90.8 Blood alcohol level of 240 mg/100 ml or more; T48.1X5A Adverse effect of skeletal muscle relaxants [neuromuscular blocking agents], initial encounter; T41.295A Adverse effect of other general anesthetics, initial encounter; Y92.238 Other place in hospital as the place of occurrence of the external cause; R45.6 Violent behavior; E87.6 Hypokalemia; Z78.1 Physical restraint status; Z11.59 Encounter for screening for other viral diseases; Z72.89 Other problems related to lifestyle
CPT/HCPCS: 31500; 36415; 36600; 51701; 70450; 71045; 80048; 80053; 80306; 80307; 80320; 80329; 81003; 82040; 82330; 82550; 82553; 82803; 83690; 83735; 84100; 84443; 85025; 87150; 87635; 93005; 94002; 96365; 96375; 99285; 99291; A9270; J0330; J1650; J2060; J3411; J3480; J8499; 81001; 81599; 87086; 94770